=== PATIENT | male | born 1970 | race Caucasian/White ===

== ENCOUNTER → 2020-12-17 08:58 | Outpatient (BNVA) | payer OTHER, SELFPAY | PROVIDERS: Visit Provider Urology | DX: N50.812 Left testicular pain (principal); N52.9 Male erectile dysfunction, unspecified | CPT/HCPCS: 64425 ==

== ENCOUNTER → 2020-12-25 11:39 | Outpatient (BNVA) | payer OTHER, SELFPAY | PROVIDERS: Visit Provider Urology ==

== ENCOUNTER 2021-01-26 06:37 | Day surgery (SDC) | payer OTHER, SELFPAY ==
[2021-01-21 11:17] VITALS: BMI 25.0
--- NOTE | 2021-01-23 09:20 | HO.ANESPROP2 ---
Documented by User: Yasmin Lopez 01/23/21 09:21 HPI - Anesthesia Eval Consult details Narrative: 50yo M for Left Microscopic Inguinal Denervation with Vesectomy +ETOH: ~ 3 drinks daily PMFSH Active Problems Active Problems: All Active Problems (Updated 01/21/21 @ 10:17 by Niki Her) Orchalgia (Acute) Erectile dysfunction (Acute) Past Medical History Medical History Bladder spasms Erectile dysfunction GERD (gastroesophageal reflux disease) Hydrocele Low back pain Paraesophageal hiatal hernia Surgical History Surgical History (Updated 01/26/21 @ 08:08 by Sherron Willis MD) H/O colonoscopy History of esophagogastroduodenoscopy (EGD) Hx of varicose vein ligation Social History Social History Alcohol intake: current Alcohol intake frequency: 3 or more drinks per day Patient Tobacco Use Status: Former Tobacco user Quit Date: 2009 Use of substances other than those prescribed or required for medical reasons: No Are you DNR?: No Advance Directives: No Advance Directives Information Provided: No Advance Directives on File: No Meds Allergies Allergy/AdvReac Type Severity Reaction Status Date / Time No Known Allergies Allergy Verified 01/26/21 06:41 Home Medications Medication Instructions Recorded Confirmed Last Taken Type omeprazole 20 mg capsule,delayed 20 mg PO DAILY 12/17/20 01/21/21 Unknown History release Exam Exam Date and Time: January 23, 2021 0920 Height,Weight and Vital Signs: Height 6 ft 1 in Weight 86.183 kg Assessment and Plan Assessment Anesthesia Assessment: Chart Reviewed Documented by User: Sherron Willis MD 01/26/21 08:10 PMFSH Past Medical History Medical History Bladder spasms Erectile dysfunction GERD (gastroesophageal reflux disease) Hydrocele Low back pain Paraesophageal hiatal hernia Family History Family history of problems with anesthesia: No Surgical History Surgical History (Updated 01/26/21 @ 08:08 by Sherron Willis MD) H/O colonoscopy History of esophagogastroduodenoscopy (EGD) Hx of varicose vein ligation History of Problems with Anesthesia: No Social History Social History Alcohol intake: current Alcohol intake frequency: 3 or more drinks per day Patient Tobacco Use Status: Former Tobacco user Quit Date: 2009 Use of substances other than those prescribed or required for medical reasons: No Are you DNR?: No Advance Directives: No Advance Directives Information Provided: No Advance Directives on File: No Meds Allergies Allergy/AdvReac Type Severity Reaction Status Date / Time No Known Allergies Allergy Verified 01/26/21 06:41 Home Medications Medication Instructions Recorded Confirmed Last Taken Type omeprazole 20 mg capsule,delayed 20 mg PO DAILY 12/17/20 01/21/21 Unknown History release Exam Height,Weight and Vital Signs: Height 6 ft 1 in Weight 86.183 kg Vital Signs Temp Pulse Resp BP Pulse Ox 01/26/21 06:46 96.9 F 75 16 135/87 99 Airway Mallampati Class: II TM Dist: >3cm Neck ROM: Full Loose/Missing/Broken Teeth: Yes (1 extracton top right) Heart: RRR Lungs: CTAB Assessment and Plan Assessment Anesthesia Assessment: Anesthesia Plan Discussed Final Anesthetic Review Family History of Problems with Anesthesia: No History of Problems with Anesthesia: No NPO: Yes ASA Class: II Final Preanesthetic Review: No Changes in Pt Med Stat, Meds/Allgs Chart Reviewed, Consent Obtained/Reviewed and Anes Risks/Benef Reviewed Patient Risk: Low Procedure Risk: Low Assessment/Block/Sedation in SS: Assess/Block/Sedation-SS Anesthetic Plan Anesthetic Plan: GA Disposition: Standard PACU
[2021-01-26 06:46] VITALS: BP 135/87; PULSE 75; RESP 16; TEMP 36.1; O2SAT 99
[2021-01-26] MEDS: Lactated Ringers 1,000 ML 100 ML IVCONT (06:54)
--- NOTE | 2021-01-26 07:31 | MHC.SHP ---
Pre-Procedural Eval Section A Date of Service: 01/26/21 Section B Chief Complaint: left orchalgia Details of Present Illness: left testicle pain and anxiety about health Relevant Family History (Specify if Yes): No Relevant Social History: None Present Medications: see Short Stay Collaborative assessment Medical History: No relevant PMH History of Previous Operations: No relevant previous surgery Allergies: Allergies Allergy/AdvReac Type Severity Reaction Status Date / Time No Known Allergies Allergy Verified 01/26/21 06:41 Review of Systems Sugical H&P ROS: Negative: Constitution, Cardiovascular, Respiratory, Neurological, Psychiatric, Hem-Onc, Allergic/Immunologic, Gastrointestinal, Genitourinary, Musculoskeletal, Integumentary, Endocrine and Eyes/Ears/Nose/Throat Exam Surgical H&P Exam: Normal: HEENT, Normal: Heart, Normal: Lungs, Normal: Extremities, Normal: Abdomen, Normal: Skin and Normal: Neurological Plan Diagnosis/Plan: Unchanged (left microscopic inguinalk denervation and vasectomy) I have reviewed the history and physical and performed a pertinent physical examination on my patient. No changes have occurred unless specified.
[2021-01-26 09:49] VITALS: BP 126/77; PULSE 67; RESP 12; TEMP 36.1; O2SAT 99
--- NOTE | 2021-01-26 09:49 | W.PM.OPN ---
Operative Note Operative Note Date of Service: 01/26/21 Narrative: PreOperative Diagnosis: Left persistent testicular pain, anxiety about health Post Operative Diagnosis: Same Procedure: 1) left microscopic inguinal denervation 2) bilateral vasectomy Surgeon: Dr Philip Mason Anesthesia: General Indications for procedure: This is a 50-year-old male. Persistent left testicular pain. In the office responded well to local anesthetic infiltration in the cord. Was offered microscopic inguinal cord denervation. Understands this is 80% successful and primary risk is loss of testicle. Secondary issue is anxiety about health regarding fertility. Would like to proceed with vasectomy at the time of surgery. This is technically straightforward and will be done. Procedure: After informed consent was verified the patient was brought to the operating room and placed in a supine position. Anesthesia was administered per protocol. The patient was shaved and prepped and draped in a sterile fashion. Safety pause time-out was performed. Antibiotics had been given. The left inguinal canal was palpated. This was marked and then a 4 cm incision was marked approximately 1 cm distal to the inguinal canal. The skin was infiltrated with local anesthetic. Using a 15 blade skin was incised and dissection was performed in the subcutaneous tissue. Dissection was performed until inguinal cord was isolated. The cord was delivered through the incision to the skin surface. A tongue depressor was then used to elevate the cord from the incision. The operating microscope was brought into place. Dissection was then performed on the cord. Muscle fibers surrounding the cord were all dissected. This was performed using bipolar cautery and scissors. The overlying tissue was removed in the cord packets exposed. Fascia was cauterized and dissected from the packet. The vas deferens packet was dissected. The primary vascular packet was then tagged with a vessel loop and retracted from the field. Dissection and denervation were performed on the 3 identified areas including the cremasteric muscle layer, robinson vasal tissues, and the posterior periarterial - lipomatous tissue. Care was taken to leave all veins and feeding arterial vessels intact. Doppler ultrasound was available to assist with identification. The vas deferens packet was identified and the cord was isolated. Using an ocular blade the cord was denervated for approximately 2 cm. Since he wished to have vasectomy after the denervation a small segment of vas was removed. Each end of the vas was cauterized. On the proximal portion tissue from the sheath was brought down and using a 4 Vicryl suture interposition of tissue was performed. When this was complete the cord was examined. The tongue depressor was removed and the cord allowed to sit in its normal position. The area was irrigated with saline. Reapproximation of deep tissue was performed using interrupted 3-0 Vicryl. Skin was reapposed using a 4-0 running Monocryl. Attention was directed to the right testicle. The vas deferens was palpated and grasped using a 3 finger technique. Local anesthetic was infiltrated it with a 25 gauge needle. Using a small José Miguel skin was . The cord was elevated using a small tenaculum. The sheath was incised with a 15 blade. The cord was isolated and a small incision made and cautery performed proximally. The proximal portion of the cord was then allowed to retract and in up to position suture was placed. The distal portion a small portion of cord was removed to be sent for specimen. The cord was then placed back into the scrotum and skin reapposed using a snap. Incisions were closed with Dermabond He tolerated the procedure well was extubated in operating room transferred in stable condition to the recovery area. Pathology: vas deferens samples Drains:
[2021-01-26 09:54] VITALS: BP 120/75; PULSE 80; RESP 17; O2SAT 96
[2021-01-26 09:59] VITALS: BP 106/76; PULSE 83; RESP 20; O2SAT 97
[2021-01-26 10:04] VITALS: BP 105/79; PULSE 83; RESP 18; O2SAT 98
[2021-01-26 10:19] VITALS: BP 122/77; PULSE 77; RESP 18; TEMP 36.1; O2SAT 99
== END 2021-01-26 10:48 | disposition home or self-care (01) ==
PROVIDERS: Visit Provider Urology
PROC: (CPT 55250; principal; 2021-01-26 08:00)
DX: N50.812 Left testicular pain (principal); N52.9 Male erectile dysfunction, unspecified; N43.3 Hydrocele, unspecified; G58.8 Other specified mononeuropathies; Z87.891 Personal history of nicotine dependence; Z79.899 Other long term (current) drug therapy
CPT/HCPCS: 55250; 88302; J0690; J1100; J2250; J2405; J2765; J3010